=== PATIENT | female | born 1960 | race Caucasian/White ===

== ENCOUNTER 2024-02-26 15:15 | Outpatient (RCR) | payer OTHER, SELFPAY ==
--- NOTE | 2024-01-16 16:31 | OPREHPOC ---
Outpatient Therapy Plan of Care This is a Multidisciplinary Plan of Care that may contain components documented by all disciplines (PT, OT, and ST.) PT Problem 1 PT Problem #1 Knowledge Deficit PT Goal 1 Goal Pt to be IND with issued HEP Target Visit 8 PT Problem 2 PT Problem #2 Pain PT Goal 1 Goal Pt to report back pain no greater than 3/10 in the last week. Target Visit 8 PT Goal 2 Goal Pt to report 75% improvement in overall symptoms.. Target Visit 8 PT Problem 3 PT Problem #3 Impaired Strength PT Goal 1 Goal Pt to demonstrate lateral hip strength of grossly 4/5. Target Visit 8 PT Goal 2 Goal Pt to demonstrate a 30lb lift and carry without an increase in pain. Target Visit 8 PT Problem 4 PT Problem #4 Impaired Gait PT Goal 1 Goal Pt to ambulate with an even heel strike and equal pelvic motion. Target Visit 8
--- NOTE | 2024-01-16 16:32 | PTOPEVAL1 ---
Assessment and note entered by Malka Fierro, PT, DPT Evaluation Information Assessment Status Evaluation Diagnosis R hip pain, low back pain Onset 2+ years Subjective Information Pt reports a couple years ago she was standing a reaching across a table and felt her hip pop. She states since then she has had intermittent hip pain, increasing over the last couple of months. She states sometimes the pain is on the side of the hip and other times towards her low back. She reports increased pain initially upon standing, when going up stairs, walking far distances, lifting heavy objects, or carry light objects a small distance. She states she took a muscle relaxer over the weekend and this seemed to help. Reported Pain Level Pain Score 3: Self Report Assessment PT Clinical Summary Laura presents to therapy today for her initial evaluation with a diagnosis of R hip and low back pain. Today she demonstrates hip flexor and piriformis tightness R>L, tenderness to palpation in her marlena piriformis, and decreased lateral hip strength. She ambulates with a hardened heel strike on the L compared to the R as well as favors her R side during stair ambulation. Skilled therapy services are indicated to address the deficits noted above, to limit pain, to improve compensations, and to return to [facility]. Plan of Care Interventions Electrical Stimulation,Gait Training,Hot Pack/Cold Pack,Manual Therapy,Neuro Re-education PT Services Indicated Yes Treatment Frequency and 2x/wk for 8 visits Duration These treatments will address the objective and functional deficits as defined above. The patient will be advanced safely and appropriately in order for the patient to progress towards his/her prior level of function. Additional exercises will be introduced and as well as a comprehensive home exercise program upon discharge, if needed, ?to ensure carryover of functional gains achieved in the clinic. This treatment plan has been reviewed and agreement upon by the patient.
--- NOTE | 2024-01-23 16:02 | PCPTNOTE ---
Patient called & cancelled scheduled appointment this date, did not give a reason why.
--- NOTE | 2024-02-26 16:16 | OPREHPOC ---
Outpatient Therapy Plan of Care This is a Multidisciplinary Plan of Care that may contain components documented by all disciplines (PT, OT, and ST.) PT Problem 1 PT Problem #1 Knowledge Deficit PT Goal 1 Goal Pt to be IND with issued HEP Target Visit 8 Progress Met PT Problem 2 PT Problem #2 Pain PT Goal 1 Goal Pt to report back pain no greater than 3/10 in the last week. Target Visit 8 Progress Met PT Goal 2 Goal Pt to report 75% improvement in overall symptoms.. Target Visit 8 Progress Met PT Problem 3 PT Problem #3 Impaired Strength PT Goal 1 Goal Pt to demonstrate lateral hip strength of grossly 4/5. Target Visit 8 Progress Met PT Goal 2 Goal Pt to demonstrate a 30lb lift and carry without an increase in pain. Target Visit 8 Progress Met PT Problem 4 PT Problem #4 Impaired Gait PT Goal 1 Goal Pt to ambulate with an even heel strike and equal pelvic motion. Target Visit 8 Progress Met
--- NOTE | 2024-02-26 16:16 | PTOPDC ---
Assessment and note entered by Jose Garza, PT Evaluation Information Assessment Status Discharge Diagnosis R hip pain, low back pain Onset 2+ years Subjective Information Reports that overall she feels she is about 90% better. Feels hip is moving better and pain is less prevalent. She feels comfortable with HEP and comfortable with discharge to [facility] at this time. Reported Pain Level Pain Score 1: Self Report Assessment PT Clinical Summary Patient has currently met all goals for therapy at this time and suitable for discharge to [facility]. Will continue to work on lateral hip strength and gross hip mobility through implementation of updated HEP. Plan of Care PT Services Indicated D/C to HEP
== END 2024-02-27 07:59 | disposition home or self-care (01) ==
LOC: ANHGOSHPT 15:15
PROVIDERS: PCP Family Medicine; Visit Provider Family Medicine
DX: M25.551 Pain in right hip (principal)
CPT/HCPCS: 97110; 97140; 97161; 97530